=== PATIENT | female | born 1985 | race Caucasian/White ===

== ENCOUNTER → 2018-08-18 | Outpatient (CLI) | payer OTHER ==
[2018-08-18 13:46] LABS: BASO % 0.2 % (0.0-1.0); EOS # 0.1 10^3/uL (0.0-0.50); EOS % 1.3 % (0.0-3.0); HEMATOCRIT 40.6 % (36.0-47.0); HEMOGLOBIN 13.5 g/dl (12.0-15.5); LYMPH # 1.7 10^3/uL (1.5-4.5); LYMPH % 18.3 % (24.0-44.0); MEAN CORPUSCULAR HEMOGLOBIN 28.1 pg (27.0-33.0); MEAN CORPUSCULAR HGB CONC 33.3 g/dl (32.0-36.5); MEAN CORPUSCULAR VOLUME 84.6 fl (80.0-96.0); MONO # 0.3 10^3/uL (0.0-0.8); MONO % 3.4 % (0.0-5.0); NEUTROPHILS # 7.1 10^3/uL (1.8-7.7); NEUTROPHILS % 76.4 % (36.0-66.0); PLATELET COUNT, AUTOMATED 202 10^3/uL (150-450); WHITE BLOOD COUNT 9.2 10^3/uL (4.0-10.0)
[2018-08-18 13:48] LABS: ALT/SGPT 15 U/L (12-78); BILIRUBIN,TOTAL 0.3 MG/DL (0.2-1.0); CREATININE FOR GFR 0.41 MG/DL (0.55-1.30); GLOMERULAR FILTRATION RATE > 60.0 (>60); LDH LACTATE DEHYDROGENASE 144 U/L (84-246); URIC ACID 3.6 MG/DL (2.6-6.0)
[2018-08-18 14:00] LABS: RUBELLA IgG QUALITATIVE IMMUNE (IMMUNE); TOTAL PROTEIN,RANDOM URINE 11.5 MG/DL (0.0-12.0)
[2018-08-18 14:29] LABS: HEPATITIS C VIRUS ABY INDEX < 0.0 INDEX (<0.8); HIV 1&2 SCREEN CENTAUR NEGATIVE (NEGATIVE)
[2018-08-18 16:17] LABS: CHLAMYDIA DNA AMPLIFICATION NEGATIVE (NEGATIVE); GC DNA AMPLIFICATION NEGATIVE (NEGATIVE)
== END ==
LOC: M SMT 10:27
PROVIDERS: ATTEND Advanced Practice Midwife
DX: Z36.89 Encounter for other specified antenatal screening (principal)

== ENCOUNTER → 2018-10-06 | Outpatient (CLI) | payer OTHER ==
--- NOTE | 2018-10-06 16:55 | REP ---
Obstetric ultrasound for anatomy: There is a single intrauterine gestation in a breech presentation. heart rate is 136 beats per minute. There is motion. The placenta is posterior. There is no previa or abruptio. Placenta is grade zero maturity. The amniotic fluid volume subjectively is normal. Cervix measures 4.6 cm length. Gestational age by today's ultrasound is 18 weeks 1 day is/BRIANA 03/08/2019. Gestational age by LMP is 18 weeks 4 days/BRIANA 03/05/2019. weight is 232 grams/0 pounds, 8 ounces. This is the 35th percentile for 18 weeks 4 days. The following anatomic structures are identified and are unremarkable: Intracranial lateral ventricles, choroid plexus, cerebellum, diaphragm, left-sided stomach, cord insertion, bladder, spine and upper lower extremities. The following structures are suboptimally demonstrated because of position and early gestational age: Facial features, four-chamber heart, cardiac right and left ventricular outflow tracts, three-vessel cord, kidneys and feet . A followup study dedicated to these structures might be considered. Otherwise, there are no anomalies. Electronically Signed by Arturo Lorenzo MD 10/06/2018 04:46 P
== END ==
LOC: M RAD 15:23
PROVIDERS: ATTEND Obstetrics & Gynecology
DX: Z34.82 Encounter for supervision of other normal pregnancy, second trimester (principal); Z3A.18 18 weeks gestation of pregnancy

== ENCOUNTER → 2018-11-03 | Outpatient (CLI) | payer OTHER ==
--- NOTE | 2018-11-03 18:21 | REP ---
REASON: Followup anatomy. Multiple ultrasonographic images of the gravid uterus in variable positions. Doppler interrogation of the heart shows a heart rate of 163 beats per minute. The placenta is posterior and not low lying. The subjective aminotic fluid volume is within normal limits. The cervix measures 5.5 cm and is closed. Evaluation of the maternal adnexal spaces showed no abnormalities. The umbilical cord was seen draping over the neck. Structures visualized as unremarkable are as follows: facial features including upper lip, four chamber heart, right and left ventricular outflow tracts, three vessel umbilical cord, and kidneys. All other structures previously seen as unremarkable on prior exam. BPD 5.2 cm = 21 weeks 6 days HC 20.1 cm = 22 weeks 3 days AC 17.6 cm = 22 weeks 4 days FL 3.8 cm = 22 weeks 4 days Estimated weight is 492 grams which is at the 36th percentile for a 22 week 4 day gestational age. IMPRESSION: Single living intrauterine gestation as described above with an estimated gestational age of 22 weeks 2 days via composite criteria and an estimated date of delivery of 03/07/2019 by today's exam. No anomalies were detected, however I recommend a followup exam to better visualized the spine. Electronically Signed by Russ Gotti DO 11/03/2018 07:04 P
== END ==
LOC: M RAD 11:00
PROVIDERS: ATTEND Advanced Practice Midwife
DX: Z34.82 Encounter for supervision of other normal pregnancy, second trimester (principal); Z3A.22 22 weeks gestation of pregnancy

== ENCOUNTER → 2018-11-10 | Outpatient (CLI) | payer OTHER ==
[2018-11-10 18:13] LABS: FREE T4 0.89 NG/DL (0.76-1.46); THYROID STIMULATING HORMONE 1.39 uIU/ML (0.358-3.740)
[2018-11-13 09:03] LABS: TOTAL 25(OH) VITAMIN D 22.2 NG/ML (30.0-100.0)
== END ==
LOC: M SMT 13:49
PROVIDERS: ATTEND Advanced Practice Midwife
DX: Z13.32 Encounter for screening for maternal depression (principal)

== ENCOUNTER → 2018-12-11 | Outpatient (CLI) | payer OTHER ==
[2018-12-11 13:51] LABS: BASO % 0.1 % (0.0-1.0); EOS # 0.1 10^3/uL (0.0-0.50); EOS % 0.7 % (0.0-3.0); HEMATOCRIT 34.5 % (36.0-47.0); HEMOGLOBIN 11.3 g/dl (12.0-15.5); LYMPH # 1.1 10^3/uL (1.5-4.5); LYMPH % 12.4 % (24.0-44.0); MEAN CORPUSCULAR HEMOGLOBIN 28.6 pg (27.0-33.0); MEAN CORPUSCULAR HGB CONC 32.8 g/dl (32.0-36.5); MEAN CORPUSCULAR VOLUME 87.3 fl (80.0-96.0); MONO # 0.2 10^3/uL (0.0-0.8); MONO % 2.6 % (0.0-5.0); NEUTROPHILS # 7.6 10^3/uL (1.8-7.7); NEUTROPHILS % 82.9 % (36.0-66.0); PLATELET COUNT, AUTOMATED 166 10^3/uL (150-450); RED BLOOD COUNT 3.95 10^6/uL (4.00-5.40); WHITE BLOOD COUNT 9.1 10^3/uL (4.0-10.0)
== END ==
LOC: M SMT 09:37
PROVIDERS: ATTEND Advanced Practice Midwife
DX: Z34.83 Encounter for supervision of other normal pregnancy, third trimester (principal); Z3A.00 Weeks of gestation of pregnancy not specified
CPT/HCPCS: 36415; 82950; 85025; 86850; 86900; 86901; J2790

== ENCOUNTER → 2018-12-18 | Outpatient (CLI) | payer OTHER | LOC: M LAB 07:35 | PROVIDERS: ATTEND Advanced Practice Midwife | DX: Z34.82 Encounter for supervision of other normal pregnancy, second trimester (principal); Z3A.00 Weeks of gestation of pregnancy not specified ==

== ENCOUNTER → 2019-02-07 | Outpatient (REF) | payer OTHER | LOC: M LAB REF 17:21 | PROVIDERS: ATTEND Specialist | DX: O99.343 Other mental disorders complicating pregnancy, third trimester (principal) ==

== ENCOUNTER → 2019-02-13 | Outpatient (CLI) | payer OTHER | LOC: M SMT 13:47 | PROVIDERS: ATTEND Advanced Practice Midwife | DX: Z34.83 Encounter for supervision of other normal pregnancy, third trimester (principal); Z3A.00 Weeks of gestation of pregnancy not specified ==

== ENCOUNTER → 2019-02-21 | Outpatient (CLI) | payer OTHER ==
[~2019-02-21] MED LIST: ACET-683 PO; IBUP80TA PO; PRENTAB9 PO; VITA200028 PO; ZOLO25TA PO
--- NOTE | 2019-02-21 16:54 | REP ---
Clinical: Growth evaluation Comparison: 11/03/2018 Findings: Examination demonstrates a single live intrauterine in cephalic presentation. motion is identified by technologist. Placenta is noted posteriorly and grade II without evidence for placenta previa or abruption. Amniotic fluid volume is normal. No evidence for nuchal cord. Gestational age by LMP 38 weeks 3 days with BRIANA 03/04/2019 . Gestational age by current measurements 38 weeks 0 days with BRIANA 03/07/2019 . FHR equals 150 beats per minute. BPD 9.2 cm 37 weeks 2 days HC 33.3 cm 38 weeks 0 days AC 34.7 cm 38 weeks 4 days FL 7.4 cm 37 weeks 5 days HL 6.6 cm 38 weeks 0 days HC/AC ratio 0.96 Estimated weight 3416 grams ( 56th percentile). Amniotic fluid index: 15.6 cm (7.3 - 23.4) Umbilical cord SD ratio: 2.00 (1.60 - 2.60) Impression: Single live intrauterine in cephalic presentation demonstrating appropriate interval growth. No gross abnormalities are identified. Electronically Signed by Kem Ho MD 02/21/2019 04:46 P
== END ==
LOC: M RAD 15:01
PROVIDERS: ATTEND Advanced Practice Midwife
DX: O26.843 Uterine size-date discrepancy, third trimester (principal); Z3A.38 38 weeks gestation of pregnancy

== ENCOUNTER 2019-02-26 06:35 | Inpatient (IN) | payer OTHER ==
[2019-02-26] VITALS (26 sets, daily range): BP systolic 115–154; BP diastolic 70–87
[~2019-02-26] VITALS: Ht 167.6 cm; Wt 106.3 kg
[2019-02-26] MEDS ORDERED: ZOLO25TA PO (07:07)
[2019-02-26] MEDS ORDERED: VITA200028 PO (07:07)
[2019-02-26] MEDS ORDERED: PRENTAB9 PO (07:07)
[2019-02-26] MEDS ORDERED: miSOPROStol 50 MCG 1/2 TAB (S0191) PO ONE (08:00)
[2019-02-26 08:34] LABS: HEMOGLOBIN 12.6 g/dl (12.0-15.5); MEAN CORPUSCULAR HEMOGLOBIN 27.9 pg (27.0-33.0); MEAN CORPUSCULAR HGB CONC 32.3 g/dl (32.0-36.5); MEAN CORPUSCULAR VOLUME 86.3 fl (80.0-96.0); PLATELET COUNT, AUTOMATED 157 10^3/uL (150-450); RED BLOOD COUNT 4.52 10^6/uL (4.00-5.40); WHITE BLOOD COUNT 9.6 10^3/uL (4.0-10.0)
[2019-02-26] MEDS ORDERED: LR 1,000 ML IV SCH (13:37)
[2019-02-26] MEDS ORDERED: OXYTOCIN DRIP 30 UNITS in APPROPRIATE DILUENT 1 EA IV SCH ×2 (13:45→21:33)
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
--- NOTE | 2019-02-26 18:58 | IPNPDOC ---
Obstetrical Progress Note Date of Service Feb 26, 2019 Subjective Patient reports she feels her contractions and is coping well. Objective Vital Signs Date Time Temp Pulse Resp B/P (MAP) Pulse Ox O2 Delivery O2 Flow Rate FiO2 02/26/19 17:53 98.0 89 16 131/77 (95) Assessment Heart Rate (FHR): 135 Variability: Moderate Accelerations: Positive Decelerations: None Heart Rate Tracing: Category I Tocometer Contractions: Yes Frequency: regular, every 1-3 min. Sterile Vaginal Examination Dilation: 3 cm (3-4 cm) Effacement (%): other (75%) Station: -1 Cervical Consistency: Soft Cervical Position: Anterior Postion/Presentation: Cephalic presentation Assessment and Plan Age: 33 : 5 Term: 4 Pre-term: 0 Abortions: 0 Livin EGA at Admission: 39.0 Status: Reassuring Group B Streptococcus: Negative Anticipate: Vaginal Delivery Additional Comments IV Pitocin at 10 mu/min. AROM to a large amount of clear fluid. YANI CAUSEY CNM Feb 26, 2019 18:58
[2019-02-26] MEDS ORDERED: FENTANYL 2MCG/ML ROPIVACAINE 0.2% IN 0.9% NACL 100ML IVBAG As Ordered ONE (19:50)
[2019-02-26] MEDS ORDERED: ANUSOL HC CREAM 30GM TOP PRN (21:45)
[2019-02-26] MEDS ORDERED: EPIDURAL COMMENT XX SCH (21:45)
[2019-02-26] MEDS ORDERED: MEASLES,MUMPS,RUBELLA VACCINE INJ (MMR-II) (90707) SC SCH (21:45)
[2019-02-26] MEDS: FENTANYL/ROPIVACAINE/NACL BAG 100 ML EPIDURAL SCH (21:45)
[2019-02-26] MEDS ORDERED: IBUPROFEN 800 MG TAB PO PRN (21:45)
[2019-02-26] MEDS ORDERED: REFRIGERATOR IV KEYS XX PRN (21:45)
[2019-02-26] MEDS ORDERED: LACTATED RINGER'S 1000 ML IV PRN (21:45)
[2019-02-26] MEDS ORDERED: ACETAMINOPHEN TAB 650MG DOSE (2X325MG) PO PRN (21:45)
[2019-02-26] MEDS ORDERED: RHOGAM 300 MCG (1500 IU) INJ (J2790) IM SCH (21:45)
[2019-02-26] MEDS ORDERED: METHYLERGONOVINE MALEATE 0.2 MG TAB PO PRN (21:45)
[2019-02-26] MEDS ORDERED: DOCUSATE SODIUM 100 MG CAP PO PRN (21:45)
[2019-02-26] MEDS ORDERED: EPIDURAL/PCA KEYS XX PRN (21:45)
[2019-02-26] MEDS ORDERED: DIBUCAINE 1% OINTMENT 30GM TOP PRN (21:45)
[2019-02-26] MEDS ORDERED: ePHEDrine SULFATE 25 MG/5 ML(5MG/ML) SYRINGE IV PRN (21:45)
[2019-02-26] MEDS ORDERED: diphenhydrAMINE INJ 50MG/ML VIAL (J1200) IV PRN (21:45)
[2019-02-26] MEDS ORDERED: IBUPROFEN 600 MG TAB PO PRN (21:45)
[2019-02-26] MEDS ORDERED: ONDANSETRON 4MG/2ML VIAL (J2405) IV PRN (21:45)
[2019-02-26] MEDS ORDERED: NALOXONE INJ 0.4 MG/1 ML VIAL (J2310) IV PRN (21:45)
--- NOTE | 2019-02-27 00:15 | DN ---
DATE: 02/26/2019 DELIVERY DATE AND TIME: 02/26/2019 at 2106 hours STATUS: Delivered. Spontaneous vaginal delivery. PROVIDER: Eloina Prasad CNM, WHNP ANESTHESIA: Epidural. ESTIMATED BLOOD LOSS: 250 mL. FINDINGS: Female, 7 pounds 14 ounces, 3570 grams, scores 8/9. Patient is a 33-year-old female who is now a 5, para 5-0-0-5 at 39 weeks gestation who presented to labor and delivery for an induction of labor. She received one dose of Cytotec and IV Pitocin for her induction. The patient requested an epidural for pain management. She progressed to fully dilated at 2100 hours and pushed to a living female at 2106 hours in the left occiput anterior (OLMAN) position with restitution to right occiput transverse (ROT). The anterior shoulder delivered with ease and the corpus immediately followed. The baby was placed on the maternal abdomen, active and crying with stimulation. The cord was clamped times two and cut by the patient after pulsations ceased. A three-vessel cord was noted. The placenta delivered spontaneously and intact at 2112 hours. The uterine hemostasis was achieved via rapid infusion of IV Pitocin and fundal massage. The vagina, cervix, and perineum was inspected and found to be intact. Mom plans to breast-feed her . They are undecided on a name at this point. Both mom and baby are in stable condition. All sponge and instrument counts are correct.
[2019-02-27 05:20] VITALS: BP 137/86
[2019-02-27] MEDS: ACETAMINOPHEN 500 MG TAB PO PRN ×2 (06:41→14:38)
[2019-02-27] MEDS: FENTANYL/ROPIVACAINE/NACL BAG 100 ML EPIDURAL SCH ×2 (07:45→17:45)
[2019-02-27] MEDS: PRENATAL VITAMINS CHEWABLE TABLET PO SCH (08:12)
[2019-02-27 18:00] VITALS: BP 154/83
[2019-02-28] MEDS: FENTANYL/ROPIVACAINE/NACL BAG 100 ML EPIDURAL SCH (03:45)
[2019-02-28 06:16] VITALS: BP 140/87
[2019-02-28] MEDS ORDERED: ACET-683 PO (06:40)
[2019-02-28] MEDS ORDERED: IBUP80TA PO (06:40)
[2019-02-28] MEDS: PRENATAL VITAMINS CHEWABLE TABLET PO SCH (08:25)
== END 2019-02-28 11:15 | disposition home or self-care (01) | DRG 560 ==
LOC: M LDI 06:35 → M PED 23:33
PROVIDERS: ADMIT Advanced Practice Midwife; ATTEND Advanced Practice Midwife
PROC: 10E0XZZ Delivery of Products of Conception, External Approach (ICD-10-PCS; principal; 2019-02-26)
PROC: 3E033VJ Introduction of Other Hormone into Peripheral Vein, Percutaneous Approach (ICD-10-PCS; 2019-02-26)
PROC: 3E0DXGC Introduction of Other Therapeutic Substance into Mouth and Pharynx, External Approach (ICD-10-PCS; 2019-02-26)
DX: O14.94 Unspecified pre-eclampsia, complicating childbirth (principal); O99.344 Other mental disorders complicating childbirth; F32.9 Major depressive disorder, single episode, unspecified; Z37.0 Single live birth; Z3A.39 39 weeks gestation of pregnancy; Z62.810 Personal history of physical and sexual abuse in childhood

== ENCOUNTER → 2020-05-26 | Outpatient (REF) | payer OTHER ==
[2020-05-26 18:26] LABS: BASO % 0.3 % (0.0-1.0); EOS # 0.2 10^3/uL (0.0-0.5); EOS % 2.3 % (0.0-3.0); HEMATOCRIT 43.2 % (36.0-47.0); HEMOGLOBIN 14.1 g/dl (12.0-15.5); LYMPH # 1.8 10^3/uL (1.5-5.0); LYMPH % 23.6 % (24.0-44.0); MEAN CORPUSCULAR HEMOGLOBIN 27.7 pg (27.0-33.0); MEAN CORPUSCULAR HGB CONC 32.6 g/dl (32.0-36.5); MEAN CORPUSCULAR VOLUME 84.9 fl (80.0-96.0); MONO # 0.3 10^3/uL (0.0-0.8); MONO % 4.2 % (0.0-5.0); NEUTROPHILS # 5.2 10^3/uL (1.5-8.5); NEUTROPHILS % 69.3 % (36.0-66.0); PLATELET COUNT, AUTOMATED 205 10^3/uL (150-450); RED BLOOD COUNT 5.09 10^6/uL (4.00-5.40); WHITE BLOOD COUNT 7.6 10^3/uL (4.0-10.0)
[2020-05-26 18:31] LABS: ALBUMIN 4.5 GM/DL (3.2-5.2); ALT/SGPT 60 U/L (12-78); BILIRUBIN,TOTAL 0.4 MG/DL (0.2-1.0); BLOOD UREA NITROGEN 20 MG/DL (7-18); CARBON DIOXIDE LEVEL 29 MEQ/L (21-32); CHLORIDE LEVEL 107 MEQ/L (98-107); COMPLEMENT C3 131 MG/DL (90-180); COMPLEMENT C4 32 MG/DL (10-40); CREATININE FOR GFR 0.66 MG/DL (0.55-1.30); GLOMERULAR FILTRATION RATE > 60.0 (>60); GLUCOSE, FASTING 96 MG/DL (70-100); POTASSIUM SERUM 3.8 MEQ/L (3.5-5.1); SODIUM LEVEL 139 MEQ/L (136-145); TOTAL PROTEIN 7.6 GM/DL (6.4-8.2)
[2020-05-26 18:34] LABS: FREE T4 0.91 NG/DL (0.76-1.46); MAGNESIUM LEVEL 2.3 MG/DL (1.8-2.4); THYROID STIMULATING HORMONE 2.59 uIU/ML (0.358-3.740)
[2020-05-26 18:40] LABS: APPEARANCE, URINE MANUAL TURBID (CLEAR); COLOR, URINE MANUAL YELLOW (YELLOW)
[2020-05-26 18:41] LABS: BILIRUBIN, URINE MANUAL NEGATIVE (NEGATIVE); BLOOD URINE MANUAL NEGATIVE (NEGATIVE); GLUCOSE, URINE (UA) MANUAL NEGATIVE (NEGATIVE); KETONE, URINE MANUAL NEGATIVE (NEGATIVE); LEUKOCYTE ESTERASE, URINE MAN NEGATIVE (NEGATIVE); NITRITE, URINE MANUAL NEGATIVE (NEGATIVE); PROTEIN, URINE MANUAL NEGATIVE (NEGATIVE); UROBILINOGEN, URINE MANUAL NORMAL (NORMAL)
[2020-05-26 18:42] LABS: TOTAL PROTEIN,RANDOM URINE 10.2 MG/DL (0.0-12.0)
[2020-05-26 18:50] LABS: ERYTHROCYTE SEDIMENTATION RATE 9 mm/hr (0-20)
[2020-05-26 20:01] LABS: AMORPHOUS SEDIMENT, URINE LARGE AMOUNT (NEGATIVE); CALCIUM OXALATE CRYSTALS,URINE MOD AMOUNT /hpf; HYALINE CAST, URINE NONE SEEN /lpf (0-1); MUCUS, URINE SMALL AMOUNT (NEGATIVE); RBC, URINE NONE SEEN /hpf (0-3); SQUAMOUS EPITHELIAL CELL URINE NONE SEEN /hpf (SMALL AMT); WBC, URINE NONE SEEN /hpf (0-3)
[2020-05-26 20:02] LABS: BACTERIA, URINE NONE SEEN
== END ==
LOC: M SFHCRHEU 13:41
PROVIDERS: ATTEND Internal Medicine
DX: M32.9 Systemic lupus erythematosus, unspecified (principal)

== ENCOUNTER 2023-12-04 19:57 | Inpatient (IN) | payer OTHER ==
[~2023-12-04] VITALS: Ht 167.6 cm; Wt 79.3 kg
[2023-12-04] MEDS ORDERED: ATIV1TAB7 PO (20:19)
[2023-12-04] MEDS: ACETAMINOPHEN TAB 650MG DOSE (2X325MG) PO ONE (21:11)
[2023-12-04] MEDS: NICOTINE 21MG/24HR 1 EA TRANSDERMAL TD ONE (21:12)
[2023-12-05] MEDS ORDERED: ACET500P3 PO (05:20)
[2023-12-05] MEDS ORDERED: HOME MED LIST COMPLETE! XX SCH (05:25)
[2023-12-05] MEDS ORDERED: MAALOX 30 ML SUSP *UDC PO PRN (13:45)
[2023-12-05] MEDS ORDERED: diphenhydrAMINE 25MG CAP PO PRN (13:45)
[2023-12-05] MEDS ORDERED: ACETAMINOPHEN TAB 650MG DOSE (2X325MG) PO PRN (13:45)
[2023-12-05] MEDS ORDERED: IBUPROFEN 400MG TAB PO PRN (13:45)
[2023-12-05] MEDS ORDERED: MOM 30ML SUSPENSION UDC PO PRN (13:45)
[2023-12-05] MEDS: NICOTINE 21MG/24HR 1 EA TRANSDERMAL TD SCH (14:27)
[2023-12-05 23:15] VITALS: BP 141/94; TEMP 97.8; O2SAT 97
[2023-12-06 06:36] VITALS: BP 126/79; TEMP 98.5; O2SAT 98
[2023-12-06] MEDS ORDERED: ACETAMINOPHEN 325 MG TAB PO PRN (07:55)
[2023-12-06] MEDS: FLUoxetine 20MG CAP PO SCH (09:36)
[2023-12-06] MEDS: ACETAMINOPHEN TAB 650MG DOSE (2X325MG) PO PRN (11:27)
[2023-12-06] MEDS: HYDROXYCHLOROQUINE 200 MG TAB PO SCH (15:01)
[2023-12-06 18:26] VITALS: BP 142/86; TEMP 98.3
[2023-12-06] MEDS: traZODone 50 MG TAB PO PRN (20:36)
[2023-12-07 05:55] VITALS: BP 117/81; TEMP 98.9; O2SAT 97
[2023-12-07] MEDS ORDERED: NICO21PAT TD (09:57)
[2023-12-07] MEDS ORDERED: FLUO-365 PO (09:57)
[2023-12-07] MEDS ORDERED: HYDR200T46 PO (09:57)
[2023-12-07] MEDS ORDERED: TRAZ-252 PO (09:57)
== END 2023-12-07 12:10 | disposition home or self-care (01) | DRG 754 ==
LOC: M ED 19:57 → M ED INP 12-05 13:42 → M PSY 12-05 20:10
PROVIDERS: ADMIT Student in an Organized Health Care Education/Training Program; ATTEND Student in an Organized Health Care Education/Training Program
DX: F32.A Depression, unspecified (principal); M32.10 Systemic lupus erythematosus, organ or system involvement unspecified; R45.851 Suicidal ideations; Z91.148 Patient's other noncompliance with medication regimen for other reason; F43.10 Post-traumatic stress disorder, unspecified; F17.200 Nicotine dependence, unspecified, uncomplicated; F12.90 Cannabis use, unspecified, uncomplicated; Z62.810 Personal history of physical and sexual abuse in childhood; R00.2 Palpitations